=== PATIENT | male | born 1945 | race Caucasian/White ===

== ENCOUNTER 2022-11-06 11:09 | Inpatient (IN) | payer OTHER ==
[2022-11-06 11:25] VITALS: BMI 24.4
[2022-11-06 12:22] LABS: BASO % 0.6 % (0-2.0); EOS % 1.9 % (0-4.5); HEMATOCRIT 40.8 % (35.4-49); HEMOGLOBIN 14.2 GM/dL (11.7-16.9); LYMPH % 31.1 % (8-40); MCH 31.4 pg (25.7-33.7); MCHC 34.9 g/dl (32.0-35.9); MEAN PLT VOLUME 9.6 fl (7.5-11.1); NEUT % 57.4 % (42.8-82.8); PLATELET COUNT 219 10^3/uL (134-434); RBC 4.54 M/mm3 (4.00-5.60); RDW 12.6 % (11.9-15.9); WHITE BLOOD COUNT 8.2 K/mm3 (4.0-10.0)
[2022-11-06 12:49] LABS: POTASSIUM 3.8 mmol/L (3.5-5.1)
[2022-11-06 12:50] LABS: INR 1.08 (0.83-1.09); PROTHROMBIN TIME (PATIENT) 12.5 SEC (9.7-13.0)
[2022-11-06] MEDS ORDERED: ASPIRIN 81 MG CHEWABLE TABLETS PO ONE (12:50)
[2022-11-06 12:51] LABS: CALCIUM 8.9 mg/dL (8.5-10.1)
[2022-11-06 12:52] LABS: ACTIVATED PTT 28.3 SECONDS (25.2-36.5); ALBUMIN 3.9 g/dl (3.4-5.0)
[2022-11-06 12:53] LABS: BLOOD UREA NITROGEN 15.5 mg/dL (7-18)
[2022-11-06 12:55] LABS: CREATININE 0.8 mg/dL (0.55-1.3)
[2022-11-06 12:57] LABS: TOT PROT 7.4 g/dl (6.4-8.2)
[2022-11-06 12:58] LABS: BILIRUBIN,TOTAL 0.8 mg/dL (0.2-1)
[2022-11-06] MEDS: SODIUM CHLORIDE 1,000 ML IV SCH ×2 (12:58→21:34)
[2022-11-06] MEDS ORDERED: ASPIRIN 81 MG CHEWABLE TABLETS ONE (12:59)
[2022-11-06 17:31] LABS: HEMATOCRIT 37.2 % (35.4-49); HEMOGLOBIN 13.3 GM/dL (11.7-16.9); MCH 32.2 pg (25.7-33.7); MCHC 35.8 g/dl (32.0-35.9); MEAN CELL VOLUME 89.9 fl (80-96); MEAN PLT VOLUME 9.3 fl (7.5-11.1); PLATELET COUNT 185 10^3/uL (134-434); RBC 4.14 M/mm3 (4.00-5.60); RDW 12.3 % (11.9-15.9)
[2022-11-06 17:32] LABS: URINE APPEARANCE CLEAR; URINE BILIRUBIN NEGATIVE (NEGATIVE); URINE COLOR YELLOW; URINE GLUCOSE (UA) NEGATIVE (NEGATIVE); URINE KETONE NEGATIVE (NEGATIVE); URINE LEUK ESTERASE NEGATIVE (NEGATIVE); URINE NITRITE NEGATIVE (NEGATIVE); URINE PROTEIN TRACE (NEGATIVE); URINE UROBILINOGEN 0.2 mg/dL (0.2-1.0)
[2022-11-06] MEDS: ATORVASTATIN CA 80 MG TABLET (FP) PO SCH (22:41)
[2022-11-07 07:51] LABS: POTASSIUM 3.8 mmol/L (3.5-5.1)
[2022-11-07 07:55] LABS: BLOOD UREA NITROGEN 14.6 mg/dL (7-18); CALCIUM 8.6 mg/dL (8.5-10.1)
[2022-11-07 07:56] LABS: ALBUMIN 3.5 g/dl (3.4-5.0)
[2022-11-07 07:58] LABS: CREATININE 0.7 mg/dL (0.55-1.3)
[2022-11-07 08:00] LABS: BILIRUBIN,TOTAL 0.8 mg/dL (0.2-1); TOT PROT 6.5 g/dl (6.4-8.2)
[2022-11-07] MEDS: ENOXAPARIN NA (PORCINE) 40 MG/0.4 ML DISP.SYRIN SQ SCH (09:58)
[2022-11-07] MEDS: ASPIRIN 81 MG CHEWABLE TABLETS PO SCH (09:58)
[2022-11-07] MEDS: SODIUM CHLORIDE 1,000 ML IV SCH (16:01)
[2022-11-07] MEDS: ATORVASTATIN CA 80 MG TABLET (FP) PO SCH (21:43)
[2022-11-08 08:45] LABS: BASO % 0.7 % (0-2.0); EOS % 0.6 % (0-4.5); HEMATOCRIT 39.8 % (35.4-49); HEMOGLOBIN 14.2 GM/dL (11.7-16.9); LYMPH % 30.5 % (8-40); MCH 32.4 pg (25.7-33.7); MCHC 35.8 g/dl (32.0-35.9); MEAN CELL VOLUME 90.5 fl (80-96); MEAN PLT VOLUME 10.3 fl (7.5-11.1); MONO % 7.9 % (3.8-10.2); NEUT % 60.3 % (42.8-82.8); PLATELET COUNT 199 10^3/uL (134-434); RDW 12.4 % (11.9-15.9); WHITE BLOOD COUNT 7.8 K/mm3 (4.0-10.0)
[2022-11-08 08:58] LABS: POTASSIUM 3.7 mmol/L (3.5-5.1)
[2022-11-08 09:00] LABS: CALCIUM 9.1 mg/dL (8.5-10.1)
[2022-11-08 09:01] LABS: ALBUMIN 3.8 g/dl (3.4-5.0); BLOOD UREA NITROGEN 12.1 mg/dL (7-18)
[2022-11-08 09:04] LABS: CREATININE 0.7 mg/dL (0.55-1.3)
[2022-11-08 09:05] LABS: TOT PROT 7.1 g/dl (6.4-8.2)
[2022-11-08] MEDS: ENOXAPARIN NA (PORCINE) 40 MG/0.4 ML DISP.SYRIN SQ SCH (11:03)
[2022-11-08] MEDS: ASPIRIN 81 MG CHEWABLE TABLETS PO SCH (11:03)
[2022-11-08] MEDS: CLOPIDOGREL BISULFATE 75 MG TABLET (FP) PO SCH (11:03)
[2022-11-08] MEDS: amLODIPine BESYLATE 5 MG TABLET (FP) PO SCH (11:04)
[2022-11-08] MEDS: ATORVASTATIN CA 80 MG TABLET (FP) PO SCH (21:17)
[2022-11-09] MEDS: CLOPIDOGREL BISULFATE 75 MG TABLET (FP) PO SCH (10:52)
[2022-11-09] MEDS: ASPIRIN 81 MG CHEWABLE TABLETS PO SCH (10:52)
[2022-11-09] MEDS: amLODIPine BESYLATE 5 MG TABLET (FP) PO SCH (10:52)
[2022-11-09 15:00] VITALS: BP 134/87; PULSE 80; RESP 18; TEMP 98.2
== END 2022-11-09 15:28 | DRG 65 ==
LOC: JER 11:09 → JERBED 13:30 → J4S 21:17
PROVIDERS: ADMIT Family Medicine; ATTEND Family Medicine
DX: I63.89 Other cerebral infarction (principal); I69.351 Hemiplegia and hemiparesis following cerebral infarction affecting right dominant side; R29.702 NIHSS score 2; I10 Essential (primary) hypertension; G20 Parkinson's disease; F32.A Depression, unspecified
CPT/HCPCS: 36415; 70450-TC; 70551-TC; 71045-TC-FY; 80053; 80061; 81003; 82550; 82962; 83036; 84443; 84484; 85025; 85027; 85610; 85730; 86850; 86900; 86901; 93005; 93010; 93306-TC; 93880-TC; 97116-GP; 97161-GP; 99285-25; C9803-CS; U0003; U0005